=== PATIENT | male | born 1965 | race Caucasian/White ===

== ENCOUNTER 2020-08-04 11:55 | Emergency (ER) | payer BC ==
[2020-08-04 15:02] LABS: THROAT:GRP A STREP ANTIGEN Negative (Negative)
== END 2020-08-04 15:09 | disposition home or self-care (01) ==
LOC: JVIRT 11:55
DX: Z03.818 Encounter for observation for suspected exposure to other biological agents ruled out (principal); R05 Cough; R19.7 Diarrhea, unspecified
CPT/HCPCS: 87070; 87880; C9803; Q3014-GT; U0003